=== PATIENT | male | born 1950 | race Hispanic/Latino ===

== ENCOUNTER 2021-03-26 05:45 | Day surgery (SDC) | payer MEDICARE, OTHER ==
[~2021-03-26] VITALS: Ht 177.8 cm; Wt 82.0 kg
[~2021-03-26 05:45] MED LIST: FLOMAX0.4 MG PO
--- NOTE | 2021-03-26 06:05 | NUR ---
RAPID COVID TEST DONE PER DR ORDER. COVID TEST COLLECTED FROM BOTH NARES W/ ISSUE. PT TOLERATED WELL.
--- NOTE | 2021-03-26 10:26 | NUR ---
03/26/21 Mode6 Destiny Goldstein 1006- PT ARRIVES TO PACU NONAROUSABLE TO NOXIOUS STIMULI WITH AN OPA IN PLACE. RESP EVEN AND UNLABORED. AUDIBLE NOISES FROM THE AIRWAY NOTED. EXPIRATORY WHEEZES HEARD THROUGHOUG ALL LUNG CALDERON. VERBAL ORDER FOR DUONEB FROM CNRA OBTAINED. OXYGEN SAT HIGH 90'S TO 100% ON 8L VIA MASK. 1010- DUONEB STARTED. OXYGEN TITRATED DOWN TO 6L VIA NEB LAUREL. 1014- PT WAKING AND COUGHING. PT INSTRUCTED TO OPEN HIS MOUTH TO REMOVE THE OPA. PT IS ABLE TO DO THIS AND OPA REMOVED. DUONEB REPLACED.
--- NOTE | 2021-03-26 11:15 | NUR ---
CONTINUIOUS BLADDER IRRIGATION DRAINING LIGHT RED BLOOD. NO CLOTS NOTED.
--- NOTE | 2021-03-26 12:27 | OR ---
[facility] [address] [place], [place] [address] Signed DATE OF OPERATION: 03/26/2021 SURGEON: Tenzin Segundo MD PREOPERATIVE DIAGNOSES: 1. Three large bladder calculi. 2. Urinary frequency, secondary to #1. 3. Active urinary tract infection. 4. Trilobar benign prostatic hyperplasia with lower urinary tract symptoms. POSTOPERATIVE DIAGNOSES: 1. Three large bladder calculi. 2. Urinary frequency, secondary to #1. 3. Active urinary tract infection. 4. Trilobar benign prostatic hyperplasia with lower urinary tract symptoms. NAMES OF PROCEDURES: 1. Diagnostic cystoscopy. 2. Urethral dilation using Greenup sounds from 16-Tanzanian to 30-Tanzanian. 3. Complex cystolitholapaxy with removal of greater than 6 cm worth of bladder calculi. ANESTHESIA: General. ESTIMATED BLOOD LOSS: 100 mL. COMPLICATIONS: None. SPECIMENS: Over 6 cm worth of fragments of bladder calculi sent to the lab for stone analysis. DRAINS: A 22-Tanzanian 3-way Chappell catheter, connected to continuous bladder irrigation. INDICATIONS FOR PROCEDURE: Mr. Jimenez is a very pleasant 70-year-old gentleman who I have known for a long time. He has been receiving conservative management for pphtogei-bg-qjtarh BPH with lower urinary tract symptoms for at least a couple years now. When his symptoms fail to Electronically Signed By: TENZIN SEGUNDO MD 03/26/21 1227 PATIENT NAME: JIMMY MEDINAKIM OPERATIVE REPORT DATE OF : 50 REPORT #: [id number] PHYSICIAN: TENZIN SEGUNDO MD PCP: MILTON GRIER REPORT IS CONFIDENTIAL AND NOT TO BE RELEASED WITHOUT AUTHORIZATION [facility] [address] [place], [place] [address] Signed improve on Flomax twice daily, the decision was made for him to undergo diagnostic cystoscopy earlier this year. Diagnostic cystoscopy revealed 3 very large bladder calculi, along with aovkpvay-fi-hkzgqh trilobar benign prostatic hyperplasia. The patient chose to defer surgery until the winter time. For the past couple of weeks, he has been experiencing severe urinary urgency and frequency symptoms that I suspect related to his growing bladder calculi. He presents today to undergo removal of his large bladder calculi with possible transurethral resection of the prostate. OPERATIVE FINDINGS: 1. On cystoscopy, there are 3 very large smooth-walled stones, each measuring around 2 cm, present within the patient's bladder. Bilateral ureteral orifices are in their normal anatomic location. Of note, the bladder wall is very friable and irritated. 2. Ureteroscopy reveals a trilobar obstructing prostate, also very friable with manipulation. Due to the extreme friability of the tissue today, the decision was made not to perform transurethral resection of the prostate. This decision was also made based on the fact that he was found to have urinary tract infection 3 days ago. 3. This was a complex cystolitholapaxy requiring at least 2.5 hours time of laser fragmentation of the stones using a holmium laser as well as irrigation of all stone fragments from the patient's bladder. 4. At the end of the procedure, a 22-Tanzanian 3-way Chappell catheter was inserted into the patient's bladder and connected to continuous bladder irrigation. DESCRIPTION OF PROCEDURE: After informed consent was obtained, the patient was taken back to the operating room. He was transferred from the [facility] to the operating room table where general anesthesia was induced. He was placed in the dorsal lithotomy position and his genitalia were prepped and draped in the standard sterile fashion. Using a 30-degree lens on a 21.5-Tanzanian introducer, a rigid cystoscope was inserted through his urethra and into his bladder. Panendoscopic views of the bladder were then obtained. Please see above findings. I then turned my attention to the 3 large bladder calculi present in the bladder. A 600 micron fiber was used with holmium laser at a setting of 10 hertz and 1.5 joules. It took approximately 2.5 hours to laser all 3 stones into small enough fragments to be irrigated from the patient's bladder using a Anita syringe. Again, the laser fragmentation portion was difficult as the stones were very difficult to laser. I avoided higher energies due to risk of damage to the bladder wall from the holmium laser. Once I was satisfied that all of the stone fragments had been removed from the patient's bladder, I did attempt transurethral resection of the patient's prostate. I removed the 21.5-Tanzanian sheath and dilated the patient's fossa navicularis using Greenup sounds from 16-Tanzanian to 30-Tanzanian without difficulty. I then inserted a 26-Tanzanian sheath using a visual obturator. The visual obturator was then removed and replaced with a resectoscope. I made about 2 to 3 bites into the median lobe of the prostate. Each bite required a good deal of cauterization time to achieve hemostasis. Electronically Signed By: TENZIN SEGUNDO MD 03/26/21 1227 PATIENT NAME: KIM DICKEY OPERATIVE REPORT DATE OF : 50 REPORT #: [id number] PHYSICIAN: TENZIN SEGUNDO MD PCP: MILTON GRIER REPORT IS CONFIDENTIAL AND NOT TO BE RELEASED WITHOUT AUTHORIZATION [facility] [address] [place], [place] [address] Signed I suspect this is due from chronic irritation from the presence of the large bladder calculi. After 3 or 4 bites, I chose to abort the TURP for today due to the more than average hemorrhage that occurred with each resection of tissue. Also, the patient is noted to have an active UTI and so the TURP today would be contraindicated. Once adequate hemostasis was achieved using the bipolar loop, the resectoscope was removed from the patient's bladder. The patient's bladder was again thoroughly irrigated with a Anita syringe. 100% of the bladder calculi fragments were successfully irrigated from the patient's bladder using the Anita syringe. At the end of procedure, a 22-Tanzanian 3-way Chappell catheter was inserted into the patient's bladder and connected to moderate flow continuous bladder irrigation. A digital rectal examination was also then performed, which revealed no evidence of any focal nodularity of the prostate. The procedure was then terminated. The patient tolerated the procedure well without any complications. He will now be transferred to the postanesthesia care unit in stable condition. DISPOSITION: I informed the patient's son today that I was able to successfully extract over 6 cm of stone burden from the patient's bladder. However, I chose not to proceed with transurethral resection of prostate due to active UTI and more than average friability of the prostatic urethra. The patient will be placed back on the OR schedule to undergo a transurethral resection of the prostate on April 09, 2021. He will be sent home today with Levaquin 500 mg one tablet p.o. daily for the next 10 days along with oxycodone 5 mg one tablet p.o. q.6 hours p.r.n. pain dispense #20. The patient was also given Pyridium as needed for dysuria. He will be scheduled return to clinic this Friday, March 28 to undergo voiding trial. I informed the family today that the only testing that needs to be redone for his upcoming TURP would be a repeat COVID test the Friday before his surgery. Tenzin Segundo MD AR/MODL /[id number] Copies: Electronically Signed By: TENZIN SEGUNDO MD 03/26/21 1227 PATIENT NAME: KIM DICKEY OPERATIVE REPORT DATE OF : 50 REPORT #: [id number] PHYSICIAN: TENZIN SEGUNDO MD PCP: MILTON GRIER REPORT IS CONFIDENTIAL AND NOT TO BE RELEASED WITHOUT AUTHORIZATION [facility] [address] [place] [address] [place], [place] [address] Signed ~ Electronically Signed By: TENZIN SEGUNDO MD 03/26/21 1227 PATIENT NAME: KIM DICKEY OPERATIVE REPORT DATE OF : 50 REPORT #: [id number] PHYSICIAN: TENZIN SEGUNDO MD PCP: MILTON GRIER REPORT IS CONFIDENTIAL AND NOT TO BE RELEASED WITHOUT AUTHORIZATION
--- NOTE | 2021-03-26 12:45 | NUR ---
PT BLADDER IRRIGATION DRAINING TO GRAVITY. OUTPUT IS LIGHT RED TO PINK. DR. SEGUNDO AT THE [facility] WITH PATIENT AND FAMILY.
--- NOTE | 2021-03-26 14:31 | NUR ---
PT URINE LIGHT PINK, HE COMMENTS THAT HE IS STILL HAVING PAIN WHEN HE PEES. THE PAIN IS INTERMITTENT. PT IS AWARE THAT HE HAS A CATHERTER IN PLACE, BUT STATES THAT IT FEELS LIKE WHEN HE HAS TO PEE.
--- NOTE | 2021-03-26 14:48 | NUR ---
AMES DRAINAGE IS LIGHTENING IN COLOR, CORRESPONDENT PINK AT THIS TIME. IRRIGATION SLOWED. PT TOLERATING WELL.
--- NOTE | 2021-03-26 15:07 | NUR ---
BLADDER IRRIGATION PAUSED TO ASSESS COLOR OF URINE.
--- NOTE | 2021-03-26 16:15 | NUR ---
COMMUNICATED WITH DR. FLOWERS REGARDING URINE COLOR. REPORTED LIGHT RED WITH NO CLOTS. DR. SCHNEIDER OK WITH DISCHARGE. PT STABLE AND READY TO DEPART. ASSISTED WITH CLOTHING AND PROVIDED URINARY DEVICE EDUCATION IT PERTAINS TO DRESSING, DRAINAGE, AND ADVERSE SIGNS AND SYMPTOMS. SON TO TRANSLATE AND FAMILY VERBALIZES UNDERSTANDING.
== END 2021-03-26 16:35 | disposition home or self-care (01) ==
LOC: DS 05:45
PROVIDERS: ATTEND Urology
PROC: 0TCB8ZZ Extirpation of Matter from Bladder, Via Natural or Artificial Opening Endoscopic (ICD-10-PCS; principal; 2021-03-26 06:45)
PROC: 0T7D7ZZ Dilation of Urethra, Via Natural or Artificial Opening (ICD-10-PCS; 2021-03-26 06:45)
DX: N21.0 Calculus in bladder (principal); N40.1 Benign prostatic hyperplasia with lower urinary tract symptoms; R35.0 Frequency of micturition; N39.0 Urinary tract infection, site not specified; I10 Essential (primary) hypertension; E78.5 Hyperlipidemia, unspecified; N13.8 Other obstructive and reflux uropathy; R97.20 Elevated prostate specific antigen [PSA]; Z87.891 Personal history of nicotine dependence; Z20.822 Contact with and (suspected) exposure to COVID-19
CPT/HCPCS: C9803; J0690; J1100; J1580; J1885; J2001; J2405; J2704; J3010; U0003

== ENCOUNTER 2021-04-09 05:40 | Day surgery (SDC) | payer MEDICARE, OTHER ==
[~2021-04-09] VITALS: Ht 177.8 cm; Wt 82.0 kg
--- NOTE | 2021-04-09 10:35 | NUR ---
04/09/21 1035 Aaron Shi REPORTS 01/07 PAIN THROUGH INTERPERETER SHARLENE ROBERTS RN. MEDICATED FOR PAIN PER EMAR. DENIES NAUSEA. ORIENTED TO TIME AND SITUATION. ORIENTED TO CATHETER. FALLS ASLEEP AFTER PAIN MEDICATION AND IS LIGHTLY SNORING BY 1035
--- NOTE | 2021-04-09 12:03 | NUR ---
1130- PT ARRIVED FROM PACU, DROWSY, ANSWERS APPROPRIATELY. IVF INFUSING, F/C WITH IRRIGATION INPLACE. ON ROOM AIR, CPOX AT BEDSIDE.FAMILY IN ROOM
--- NOTE | 2021-04-09 12:18 | NUR ---
medicated with Dilaudid 0.5mg c/o 10/10 penile/low abd pain.
--- NOTE | 2021-04-09 15:06 | NUR ---
COMFORTABLE, TOLERATING LIQUIDS AND CRACKERS WELL. 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 IVF INFUSING.
--- NOTE | 2021-04-09 16:25 | NUR ---
f/c drainage cranberry colored. bladder irrigation increased, denies c/o pain, tolerating fluids well, got crackers too. no emesis. family in room
--- NOTE | 2021-04-09 19:10 | NUR ---
Dr Porter here to examine pt. Pt comfortable, IVF infusing. CI infusing
--- NOTE | 2021-04-09 19:40 | NUR ---
IN TO SEE PT. HAND OFF REPORT RECIEVED. NO NEEDS OR REQUESTS AT THIS ITME. CALL LIGHT IN REACH.
--- NOTE | 2021-04-09 21:13 | NUR ---
IN TO SEE PT, ASSESSMENT DUE. NEW BAG OF FLUIDS STARTED. IV FLUSHING WELL, NO S/SX OF INFILTRATION OR PHELBITIS. PT DENIES PAIN. FAMILY AT BEDSIDE. I AND OS COMPLETED. NO BLOOD CLOTS NOTED IN AMES. PINK COLORED OUTPUT NOTED. AMES CATHETER CARE PROVIDED. NO OTHER NEEDS OR REQUESTS AT TIME. CALL LIGHT IN REACH.
--- NOTE | 2021-04-10 01:25 | NUR ---
IN TO CHECK ON PT. FAMILY REMIANS AT THE BEDSIDE. VS OBTAINED. F/C EMPTIED. URINE OUTPUT LIGHT PINK. PT HAM PAIN AND DISCOMFRT. NO NEEDS OR REQUESTS AT THIS TIME.
--- NOTE | 2021-04-10 02:33 | NUR ---
PT RESTING, DENIES NEEDS. CBI AT SLOW DRIP. CALL LIGHT IN REACH.
--- NOTE | 2021-04-10 03:29 | NUR ---
IN TO CHECK ON PT, PT LAYING IN BED WITH EYES OPEN AND ALERT. CBI FLOWING AT SLOW DRIP. NO NEEDS AT THIS ITME. CALL LIGHT IN REACH.
--- NOTE | 2021-04-10 05:45 | NUR ---
IN TO SEE PT. ASSESSMENT COMPLETED. PT UP TO USE BSC. VS COMPLETED. FAMILY REMIANS AT BEDSIDE. I AND O'S COMPLETED. DENIES PAIN. NO OTHER NEEDS. CALL LIGHT IN REACH.
--- NOTE | 2021-04-10 06:29 | NUR ---
ALERT AND OREITNED X3. REG DIET. BM. CBI CLAMPED SINCE 544. IV FLUIDS INFUSING. SUDANESE SPEAKING ONLY. RA. BEDREST. 1 SBA. 3WAY AMES. DENIES PAIN.
--- NOTE | 2021-04-10 06:44 | NUR ---
NEW BAG IV FLUIDS INFUSING. PT DENIES PAIN. NO OTHER NEEDS. CALLL LIGHT IN REACH.
--- NOTE | 2021-04-10 07:15 | NUR ---
THIS RN RECEIVED REPORT FROM HALEY BRADLYE. PTS SON AWAKE AND ABLE TO TRANSLATE FOR THIS RN. PT DENIES PAIN AT THIS TIME. THIS RN NOTED THAT PTS HUI WAS PUTTING OUT DARK RED DRAINAGE WITH FINE SEDIMENT. CBI AT A TRICKLE
--- NOTE | 2021-04-10 08:00 | NUR ---
THIS RN CALLED TO UPDATE HER ABOUT PTS CONDITION. MD ASKED THIS RN TO MANUALLY FLUSH THE BLADDER TO LOOK FOR CLOTS AND TO TURN CBI UP TO MORE THAN A TRICKLE. OKAY WITH DISCHARGING PT WITH CRANBERRY COLORED OUTPUT.
[2021-04-10] MEDS ORDERED: OXYCODONE HCL5 MG PO (08:06)
[2021-04-10] MEDS ORDERED: LEVOFLOXACIN500 MG PO (08:07)
--- NOTE | 2021-04-10 08:30 | NUR ---
THIS RN IN PTS ROOM TO FLUSH PTS 3 WAY CATHETER. NO CLOTS NOTED AND PT TAUGHT WHAT THIS RN WAS DOING. THIS RN WILL CONTINUE TO WATCH COLOR AND SEDIMENT IN CATHETER TUBING.
--- NOTE | 2021-04-10 10:15 | NUR ---
THIS RN IN PTS ROOM TO GIVE MEDS. PT STILL DENIES PAIN AND COLOR OF OUTPUT IS A LIGHT TO REGULAR EcorithmERRY COLOR AT THIS TIME. THIS RN TO CLAMP CBI AND WATCH COLOR OF DRAINAGE.
--- NOTE | 2021-04-10 10:18 | NUR ---
PATIENT IN BED RESTING AT THIS TIME. FAMILY IN ROOM. VITALS AND I&O'S CHARTED. CALL LIGHT IN REACH. NO FURTHER NEEDS AT THIS TIME.
--- NOTE | 2021-04-10 11:30 | NUR ---
PTS OUTPUT COLOR HAS REMIANED WITH A NORMAL CRANBERRY COLOR WITH MINMAL FINE SEDIMENT AT THIS TIME. NO PAIN NOTED. THIS RN DISCUSSED WITH PTS SON WHO INTERPRETED DISCHARGE TEACHING, ESPECIALLY HOW TO KEEP THE CATHETER INSERTION SITE CLEAN
--- NOTE | 2021-04-10 17:07 | OR ---
[facility] [address] [place], [place] [address] Signed DATE OF OPERATION: 04/09/2021 SURGEON: Tenzin Segundo MD PREOPERATIVE DIAGNOSES: 1. Severe trilobar benign prostatic hyperplasia with active lower urinary tract symptoms. 2. History of multiple bladder calculi measuring up to 6 cm of stone burden, status post recent extraction of bladder calculi. POSTOPERATIVE DIAGNOSES: 1. Severe trilobar benign prostatic hyperplasia with active lower urinary tract symptoms. 2. History of multiple bladder calculi measuring up to 6 cm of stone burden, status post recent extraction of bladder calculi. NAMES OF PROCEDURES: Transurethral resection of the prostate. ANESTHESIA: General. ESTIMATED BLOOD LOSS: 100 mL. COMPLICATIONS: None. SPECIMENS: 1. Prostate chips sent to Pathology for evaluation. 2. Lesion present on verumontanum, status post resection of papillary appearing area to be sent to the lab for pathologic evaluation. DRAINS: A 22-Marshallese three-way Chappell catheter, connected to continuous bladder irrigation. INDICATIONS FOR PROCEDURE: Kim is a very pleasant 70-year-old gentleman who is well-known to me. He has a longstanding history of BPH with lower urinary tract symptoms and has been taking maximum medication therapy for at least a year now. Earlier in the year 2020, he underwent diagnostic cystoscopy, which revealed three large bladder calculi, each measuring around 2 cm in size. Also, noted was severe trilobar BPH with evidence of Electronically Signed By: TENZIN SEGUNDO MD 04/10/21 1707 PATIENT NAME: KIM DICKEY OPERATIVE REPORT DATE OF : 50 REPORT #: [id number] PHYSICIAN: TENZIN SEGUNDO MD PCP: MILTON GRIER REPORT IS CONFIDENTIAL AND NOT TO BE RELEASED WITHOUT AUTHORIZATION [facility] [address] [place], [place] [address] Signed active bladder outlet obstruction. Approximately two weeks ago, he underwent a greater than 2-hour bladder stone extraction. The procedure took a long time due to the shear size of the stones. He did well after that procedure and presents today now to undergo definitive resection of his obstructing prostate. OPERATIVE FINDINGS: 1. Digital rectal examination reveals an 85-90 g prostate that is smooth and symmetric with no focal nodules. 2. On cystoscopy, there was again no evidence of any suspicious masses or lesions within the bladder. However, there is evidence of a papillary appearing lesion on the verumontanum. This was resected and sent in a separate specimen cup to Pathology. The bilateral ureteral orifices are in their normal anatomic location and noted to be a good distance away from the bladder neck. Also of note is one small 6 cm residual bladder calculus that escaped extraction around two weeks ago. This was successfully irrigated from the patient's bladder today. 3. Urethroscopy revealed a severe trilobar prostatic hyperplasia. In particular, the anterior portion of the urethra had a lot more tissue present than is normally seen. There is no obvious median lobe, however, the anterior portion of the prostatic urethra is significantly hypertrophied, making it somewhat similar to a classic trilobar hypertrophy. The lateral lobes were moderate to large in size with an approximate distance of 3 cm from bladder neck to the verumontanum. 4. The patient's trilobar prostate was resected transurethrally, mostly using a 24-Marshallese bipolar loop. The resection time was approximately 2 hours as he had a very large prostatic urethra. I took the anterior wall of the prostatic urethra down significantly along with the lateral lobes of the prostate and a little bit of the median lobe of the prostate. Both the left and right lateral lobes of the prostate were fully resected down to the level of the verumontanum. The resection was performed without difficulty, however, there was a good deal of active bleeding during the surgery that I suspect was due to an elevated diastolic blood pressure. 5. At the end of procedure, a 22-Marshallese three-way Chappell catheter was inserted into the patient's bladder and connected to continuous bladder irrigation. DESCRIPTION OF PROCEDURE: After informed consent was obtained, the patient was taken back to the operating room. He was transferred from the [facility] to the operating room table, where general anesthesia was induced. He then underwent a digital rectal examination. He was placed in the dorsal lithotomy position and his genitalia were prepped and draped in the standard sterile fashion. His urethral meatus was then dilated from 20-Marshallese to 30-Marshallese without difficulty using Gabriela sounds. Using a 30-degree lens on a 22.5-Marshallese introducer, a rigid cystoscope was inserted through the urethra into his bladder under direct visualization. Diagnostic cystoscopy was then performed. Please see above findings. I then removed the cystoscope and then inserted a 26-Marshallese continuous flow Electronically Signed By: TENZIN SEGUNDO MD 04/10/21 1707 PATIENT NAME: KIM DICKEY OPERATIVE REPORT DATE OF : 50 REPORT #: [id number] PHYSICIAN: TENZIN SEGUNDO MD PCP: MILTON GRIER REPORT IS CONFIDENTIAL AND NOT TO BE RELEASED WITHOUT AUTHORIZATION [address] [address] Signed sheath using a visual obturator. The visual obturator was then switched out for the resectoscope. Prior to this, I instilled 60 mL of lubricant into the patient's urethra using a cath tipped syringe. Once the resectoscope was in place, I resected the mildly elevated bladder neck initially using the 24-Marshallese bipolar loop. I then focused on both the left and lateral myles of the prostate thereafter. All the while, I was aware of the location of the bilateral ureteral orifices and they did not sustain any damage during the resection as they were not near the bladder neck. Once I resected the lateral lobes of the prostate, I then turned my attention to the anterior wall of the prostatic urethra, which had a good deal of tissue present. Again, this was resected using a 24-Marshallese loop. Again, the resection was performed down to the level of verumontanum, as to avoid damage to the external sphincter. After good deal of tissue was excised using a 24-Marshallese loop, I used a Anita syringe to extract all the prostate chips and the one smaller bladder calculus from the patient's bladder. Once a good deal of tissue had been removed, I switched from the 24-Marshallese loop to the bipolar button. I was able to achieve a good deal of hemostasis with the button. The patient's bladder was again thoroughly irrigated of all prostate chips. The chips were then placed in a specimen cup and sent to Pathology for evaluation. The single bladder calculus discovered today was not placed in a specimen jar, as his stone analysis from the case has already been performed. After the TURP was completed, I removed the resectoscope along with the 26-Marshallese sheath. Prior to removing the sheath, I inserted a 0.035 Sensor wire into the patient's bladder through the existing sheath. The sheath was then removed fully intact. Over the wire, I passed a 22-Marshallese three-way Chappell catheter into the patient's bladder without difficulty. The wire was then removed and the catheter was then manually irrigated multiple times to assure adequate placement. The Chappell balloon was filled with 30 mL of water. Once flushed, the catheter was then connected to continuous bladder irrigation. The procedure was then terminated. The patient tolerated the procedure well without any complication. He will now be transferred to the postanesthesia care unit in stable condition. DISPOSITION: I discussed the details of today's procedure with the patient's family and answered all of their questions. He will remain in house tonight and be transferred to Med/Surg later this morning where his diet will be restarted and he will be given pain control as needed. His continuous bladder irrigation will be slowly weaned off overnight. He will be given one additional dose of Rocephin in the morning prior to discharge. He will be heading home with a Chappell catheter to gravity drainage and will return this April 12 to undergo a voiding trial. Tenzin Segundo MD Electronically Signed By: TENZIN SEGUNDO MD 04/10/21 1707 PATIENT NAME: KIM DICKEY OPERATIVE REPORT DATE OF : 50 REPORT #: [id number] PHYSICIAN: TENZIN SEGUNDO MD PCP: MILTON GRIER REPORT IS CONFIDENTIAL AND NOT TO BE RELEASED WITHOUT AUTHORIZATION [address] [address] Signed AR/MODL /[id number] Copies: ~ Electronically Signed By: TENZIN SEGUNDO MD 04/10/21 1707 PATIENT NAME: MALORIE DICKEYO OPERATIVE REPORT DATE OF : 50 REPORT #: [id number] PHYSICIAN: TENZIN SEGUNDO MD PCP: MILTON GRIER REPORT IS CONFIDENTIAL AND NOT TO BE RELEASED WITHOUT AUTHORIZATION
--- NOTE | 2021-04-22 11:01 | PATH ---
[facility] [address], [place] [address] Signed SPECIMEN(S): A PROSTATE CHIPS SPECIMEN(S): B URETHRAL LESION (VERUMONTANUM) SPECIMEN SOURCE: A. PROSTATE CHIPS B. URETHRAL LESION (VERUMONTANUM) CLINICAL HISTORY: BPH; transurethral resection of prostate. FINAL PATHOLOGIC DIAGNOSIS: A. Prostate chips, transurethral resection: - Benign prostatic hyperplasia. - Focal atypical intraductal proliferation, see Comment - Focal urothelial atypia, favor reactive. B. Urethral lesion, verumontanum, biopsy: - Atypical intraductal proliferation, see Comment. COMMENT: The urethral biopsy shows a discrete, nodular, cribriform and papillary proliferation of prostatic glands lined by cells with enlarged nuclei, prominent nucleoli, and amphophilic cytoplasm. There is mildly increased anisonucleosis (1-2x) and mitotic activity is brisk; no coagulative tumor necrosis is seen. TRICAP multiplex staining (with appropriately staining controls) shows retained basal marker (p63, HMWCK) expression in conjunction with diffuse, strong AMACR expression. These results are indicative of a neoplastic prostatic lesion with a degree of atypia intermediate between high grade prostatic intraepithelial neoplasia (HGPIN) and more aggressive intraductal tumors (i.e. intraductal carcinoma, ductal adenocarcinoma). Therefore, this focus is best considered as an "atypical intraductal proliferation." A single fragmented focus with similar nuclear, architectural features, and immunohistochemical features (as demonstrated by TRICAP multiplex stain) of the urethral lesion is seen in the TURP specimen, which could represent a portion of the same lesion. Close clinical follow up along with short interval re-biopsy (optimally within 1 to 3 months) is advised. This case was reviewed with another member of our pathology staff with subspecialty training with genitourinary pathology. PATIENT NAME: KIM DICKEY PATHOLOGY DATE OF : 50 REPORT #: [id number] PHYSICIAN: KARYN PATHOLOGY PCP: MILTON GRIER REPORT IS CONFIDENTIAL AND NOT TO BE RELEASED WITHOUT AUTHORIZATION [facility] [address], [place] [address] Signed A diagnostic alert was initiated by Dr. Reyes on 04/22/21. NAL:cml:C2NR MICROSCOPIC EXAMINATION: Histologic sections of all submitted blocks are examined by light microscopy. These findings, together with the gross examination, support the pathologic diagnosis. Regarding specimen A: A fragment of urothelium with nuclear atypia in in the setting of intraepithelial acute inflammation is identified. Immunohistochemical stains (with appropriately staining controls) were performed. The urothelium is negative for full-thickness CK20 staining and p53 is not overexpressed. Given the combined morphologic and immunophenotypic profile, this is favored as reactive. GROSS DESCRIPTION: Two specimens are received in two containers, labeled "GR." A. The specimen, labeled "GR, A," and designated on the requisition "prostate chips," is received in formalin and consists of multiple fragments of pink-jimenez, hemorrhagic, soft and rubbery tissue (29 gram, 7.5 x 6.0 x 3.0 cm in aggregate). Approximately 60% of the specimen is submitted in cassettes (A1-A11). B. The specimen, labeled "GR, B," and designated on the requisition "urethral lesion (verumontanum)," is received in formalin and consists of two fragments of jimenez soft tissue (0.5 and 0.8 cm in greatest dimension). The specimen is submitted entirely in cassette (B1). AC (under the direct supervision of a pathologist) The remainder of specimen is submitted in cassettes (A12-A21) at the request of Dr. Eric JAMES (under the direct supervision of a pathologist) The Gross Description was prepared using a voice recognition system. The report was reviewed for accuracy; however, sound-alike word errors, addition and/or deletions may occur. If there is any question about this report, please contact Client Services. PERFORMING LABORATORY: The technical component was performed by [facility], [address] [place] [id number] (Director Of Public Relations: Alisa Castro MD; CLIA# [id number]). [facility], [address] [place] [address] (CLIA# [id number]). PATIENT NAME: KIM DICKEY PATHOLOGY DATE OF : 50 REPORT #: [id number] PHYSICIAN: KARYN SHANNON PCP: MILTON GIRER REPORT IS CONFIDENTIAL AND NOT TO BE RELEASED WITHOUT AUTHORIZATION [facility] [address], [place] [address] Signed Diagnostician: Reema Reyes MD Pathologist Electronically Signed 04/22/2021 Copies: ~ PATIENT NAME: KIM DICKEY PATHOLOGY DATE OF : 50 REPORT #: [id number] PHYSICIAN: KARYN SHANNON PCP: MILTON GRIER REPORT IS CONFIDENTIAL AND NOT TO BE RELEASED WITHOUT AUTHORIZATION
== END 2021-04-10 11:55 | disposition home or self-care (01) ==
LOC: MS 05:40 → DS 05:40
PROVIDERS: ATTEND Urology
PROC: 0VT08ZZ Resection of Prostate, Via Natural or Artificial Opening Endoscopic (ICD-10-PCS; principal; 2021-04-09 09:05)
DX: N40.1 Benign prostatic hyperplasia with lower urinary tract symptoms (principal); R39.14 Feeling of incomplete bladder emptying; R39.12 Poor urinary stream; R35.1 Nocturia; N13.8 Other obstructive and reflux uropathy; I10 Essential (primary) hypertension; Z87.891 Personal history of nicotine dependence; Z87.442 Personal history of urinary calculi
CPT/HCPCS: 00914; 88305; 88344; C1769; J0690; J0696; J1100; J1170; J1885; J2250; J2270; J2405; J2704; J2765; J3010; J7030; J7121

== ENCOUNTER 2021-07-02 06:02 | Day surgery (SDC) | payer MEDICARE, OTHER ==
[~2021-07-02] VITALS: Ht 177.8 cm; Wt 81.8 kg
[~2021-07-02 06:02] MED LIST changes: +LEVOFLOXACIN500 MG PO; +OXYCODONE HCL5 MG PO
[2021-07-02] MEDS ORDERED: LISINOPRIL-HCT1 EACH PO (06:16)
--- NOTE | 2021-07-02 08:42 | NUR ---
07/02/21 0842 Noy Dunn 0827-PT TO PACU IN SUPINE POSITION. EYES CLOSED DOES NOT RESPOND TO VERBAL OR TACTILE STIMULI. BREATHING EASY AND UNLABORED. WITH ORAL AIRWAY IN PLACE. HOB ELEVATED TO ACHIEVE OPTIMAL VENTILLATION WITHOUT CHIN LIFT. SP02 >95% ON 10 L O2 VIA SIMPLE MASK 0831- AUDIBLE WHEEZES HEARD. MANAGER MONITORING NOTIFIED. DUO NEBULIZER STARTED WITH MANAGER MONITORING AT BEDSIDE. PT DOES NOT FOLLOW COMMANDS BUT IS REACTIVE TO TACTILE STIMULI. BRETAHING EASY AND UNLABORED WITH ORAL AIRWAY IN PLACE. SPO2 >95% ON 6 L O2 VIA SIMPLE MASK. 0834- PT RESPONDS TO TACTILE STIMULI AND FOLLOWS COMMANDS. ORAL AIRWAY REMOVED. PT ENCOURAGED TO TAKE DEEP BREATHS. RETURN DEMONSTRATION OBSERVED. BREATHING TREATMENT ONGOING 0840- MODELING AGENCY MANAGER AT BEDSIDE. PT EDUCATED ABOUT PLAN OF CARE IN PACU. PT REPORTS 0/10 PAIN AND NO NAUSEA. BREATHING EASY AND UNLABORED. SPO2 >95% ON 6 L O2 VIA SIMPLE MASK.
--- NOTE | 2021-07-02 09:08 | NUR ---
PT BACK TO ROOM FROM PACU ALERT AND AWAKE DENIES PAIN OR NAUSEA, PT DRINKING WATER AND EATING CRACKERS TOLERATES WELL. IS AT BEDSIDE. WARM BLANKET GIVEN, CALL LIGHT WITHIN REACH. AMES CATH IN PLACE DRAINING PINK URINE.
--- NOTE | 2021-07-02 09:29 | NUR ---
0905 AMES DRAINING PINK URINE, NO CLOTS NOTED. AMES REMOVED SMALL BLOOD CLOT FROM URETHRA CATH WAS REMOVED. PT TOLERATED WELL. 300ML OF PINK COLORED URINE IN AMES BAG.
--- NOTE | 2021-07-02 09:42 | NUR ---
0930 PT REPORTS NEEDING TO VOID, STANDING AT BEDSIDE USING URINAL PT WAS ABLE TO VOID 50ML OF BLOOD TINGED URINE. PT HELPED BACK INTO BED, FLASH NAPIER GIVEN CALL LIGHT WITH IN REACH.
--- NOTE | 2021-07-02 10:56 | NUR ---
1025 PT UP AT SIDE OF BED TO VOID 100ML OF BLOOD TINGED URINE. 1035 PT UP AT SIDE OF TO VOID 125ML OF BLOOD TINGED URINE [address] SEGUNDO ABOUT BLOOD IN URINE SHE SAY TO ASSURE THEM THEM THAT IT IS NORMAL LONG THERE ARE NO BIG BLOOD CLOTS, SHE WAS GIVEN THE OK FROM TO GO HOME. PT WAS HELPED TO DRESS BY AND VOIDED 150ML OF BLOOD TINGED URINE. IV DC'D TIP IN TACT, DISCHARGE INSTRUCTIONS GIVEN TO PT AND BOTH VOICED UNDERSTANDING. PT WAS GIVEN A TOTAL OF 2500ML OF LR, (2200ML IN OR AND PACU, 300ML IN DAYSURGERY).
--- NOTE | 2021-07-02 11:04 | NUR ---
1055 PT DENIES PAIN OR NAUSEA, PT WHEELED OUT TO FRONT DOOR BY RN
--- NOTE | 2021-07-02 13:52 | OR ---
[facility] [address] [place], [place] [address] Signed DATE OF OPERATION: 07/02/2021 SURGEON: Tenzin Segundo MD PREOPERATIVE DIAGNOSES: 1. Abnormal urethral pathology noted at the level of the prostatic verumontanum at the time of transurethral resection of prostate in March of 2021. 2. History of BPH with severe lower urinary tract symptoms. POSTOPERATIVE DIAGNOSES: 1. Abnormal urethral pathology noted at the level of the prostatic verumontanum at the time of transurethral resection of prostate in March of 2021. 2. History of BPH with severe lower urinary tract symptoms. PROCEDURES: 1. Diagnostic cystoscopy. 2. Transurethral biopsy of prostatic verumontanum. ANESTHESIA: General. ESTIMATED BLOOD LOSS: Minimal. COMPLICATIONS: None. SPECIMENS: Fragments of the remaining verumontanum were sent to pathology for evaluation. DRAINS: A 20-Cymro two-way Chappell catheter, connected to gravity drainage. INDICATIONS FOR THE PROCEDURE: Mr. Tony Hopper is a very pleasant 71-year-old gentleman with history of severe trilobar BPH with lower urinary tract symptoms, who is well-known to me. After a year or so of conservative management with Flomax, the patient was noted to have multiple bladder calculi on cystoscopy along with trilobar prostatic urethra. In March, he underwent extraction of his bladder calculi, followed by a formal transurethral resection of the prostate. At that time, there was a papillary lesion noted on his Electronically Signed By: TENZIN SEGUNDO MD 07/02/21 1352 PATIENT NAME: KIM DICKEY OPERATIVE REPORT DATE OF : 50 REPORT #: [id number] PHYSICIAN: TENZIN SEGUNDO MD PCP: MILTON GRIER REPORT IS CONFIDENTIAL AND NOT TO BE RELEASED WITHOUT AUTHORIZATION [facility] [address] [place] [id number] Signed verumontanum and so this was resected. Pathology was indeterminate at that time; however, it could not be established to be benign, so the pathologist requested that a repeat biopsy be performed. He has been doing well since his TURP otherwise and is now voiding without any difficulty. OPERATIVE FINDINGS: 1. On cystoscopy, there was no evidence of any suspicious masses, lesions, or stones. Bilateral ureteral orifices are in their normal anatomic location. 2. The prostatic urethra is wide open and there is no significant evidence of any regrowth of his prostatic adenoma. The verumontanum is noted and there are no obvious papillary lesions near or around the verumontanum or anywhere in the prostatic urethra. The remaining portion of the verumontanum was completely resected and sent to pathology for evaluation. 3. At the end of the procedure, a 20-Cymro two-way Chappell catheter was inserted into the patient's bladder over a Sensor wire. DESCRIPTION OF PROCEDURE: After informed consent was obtained, the patient was taken back to the operating room. He was transferred from [facility] to the operating room table, where general anesthesia was induced. He was placed in the dorsal lithotomy position and his genitalia prepped and draped in a standard sterile fashion. His urethral meatus was dilated using [place] sounds from 20-Cymro to 28-Cymro without difficulty. A 60 mL of sterile lubricant were then instilled into the patient's urethra to prevent strictures. A 26-Cymro sheath was inserted into the patient's bladder using a visual obturator. This was switched out for a resectoscope with a 24-Cymro loop. Prior to this, I performed a diagnostic cystoscopy using a 30-degree lens and a 22.5-Cymro sheath. With the resectoscope in place, I evaluated the verumontanum in the prostatic urethra. Please see above findings. I resected the remaining portion of the verumontanum without incident. The majority of the specimen was present within two chips of tissue. These were placed in a specimen cup to be sent to Pathology for evaluation. I then gently cauterized the biopsy area. I also cauterized a couple of bleeders present at the bladder neck, which was otherwise wide open. The resectoscope was then removed. I irrigated the patient's bladder using the indwelling 26-Cymro sheath. A 0.035 Sensor wire was inserted through the sheath and into the patient's bladder. The sheath was removed fully intact, leaving the Sensor wire in place. Over the wire, passed a 20-Cymro two-way Chappell catheter into the patient's bladder without difficulty. The catheter balloon was filled with 20 mL of sterile water. The catheter was then manually irrigated and there was a light amount of blood tinged to the urine, however, nothing that was concerning. The catheter was then connected to gravity drainage and the procedure was terminated. The patient tolerated the procedure well without any complication. He will now be transferred to the Postanesthesia Care Unit in stable condition. Electronically Signed By: TENZIN SEGUNDO MD 07/02/21 1352 PATIENT NAME: KIM DICKEY OPERATIVE REPORT DATE OF : 50 REPORT #: [id number] PHYSICIAN: TENZIN SEGUNDO MD PCP: MILTON GRIER REPORT IS CONFIDENTIAL AND NOT TO BE RELEASED WITHOUT AUTHORIZATION [facility] [address] [place], [place] [address] Signed DISPOSITION: I discussed the details of today's procedure with the patient's and friend via the friend who was the aerial photograph interpreter. I explained that I did not see anything abnormal in the patient's urethra or bladder today and then I suspect the pathology specimen to overall be benign. His Chappell catheter will be removed in approximately 30 minutes and then a voiding trial will be initiated. He was sent home today with Cipro 500 mg p.o. b.i.d. for a total of five days, along with oxycodone 5 mg one tablet p.o. q.6 hours p.r.n. pain, dispense #10 pills as needed for pain. He will be scheduled to return to clinic on August 28 for a postoperative evaluation. In the interim if his pathology is abnormal in any way, I told his today that she will be notified. MD LB Quiñones/EVA /[id number] Copies: ~ Electronically Signed By: TENZIN SEGUNDO MD 07/02/21 1352 PATIENT NAME: KIM DICKEY OPERATIVE REPORT DATE OF : 50 REPORT #: [id number] PHYSICIAN: TENZIN SEGUNDO MD PCP: MILTON GRIER REPORT IS CONFIDENTIAL AND NOT TO BE RELEASED WITHOUT AUTHORIZATION
--- NOTE | 2021-07-04 15:37 | PATH ---
[facility] [address] [place], [place] [address] Signed SPECIMEN(S): A URETHRAL SPECIMEN SOURCE: A. URETHRAL CLINICAL HISTORY: Urethral lesion (S/P TURP). Post: Cysto with urethral biopsy. FINAL PATHOLOGIC DIAGNOSIS: Urethra, biopsy: - Fragments of urethral tissue with prior biopsy/procedural site changes. - No residual atypical intraductal proliferation identified, see comment. COMMENT: The previous histologic material () is reviewed, and the histologic features of the prior case are not seen in the current case. An immunohistochemical stain for AE1/AE3 is performed on the current case and supports the above interpretation. BRP:[facility]:C2NR MICROSCOPIC EXAMINATION: Histologic sections of all submitted blocks are examined by light microscopy. These findings, together with the gross examination, support the pathologic diagnosis. GROSS DESCRIPTION: The specimen, labeled "GR, A," and designated on the requisition "urethral lesion," is received in formalin and consists of multiple fragments of pink-jimenez tissue (1.4 x 1.0 x 0.3 cm in aggregate). The specimen is submitted entirely in cassette (A1). AC (under the direct supervision of a pathologist The Gross Description was prepared using a voice recognition system. The report was reviewed for accuracy; however, sound-alike word errors, addition and/or deletions may occur. If there is any question about this report, please contact Client Services. ADDITIONAL NOTES: Immunohistochemical and/or in situ hybridization studies were performed on this case with the appropriate positive controls that react as expected. This test was developed and its performance characteristics determined by [facility]. It has not been cleared or PATIENT NAME: KIM DICKEY PATHOLOGY DATE OF : 50 REPORT #: [id number] PHYSICIAN: KARYN SHANNON PCP: MILTON GRIER REPORT IS CONFIDENTIAL AND NOT TO BE RELEASED WITHOUT AUTHORIZATION [facility] [address] [facility] [place] [address] Signed approved by the U.S. Food and Drug Administration. The FDA has determined that such clearance or approval is not necessary. This test is used for clinical purposes. It should not be regarded as investigational or for research. [facility] is certified under the Clinical Laboratory Improvement Amendments of 1988 (CLIA) as qualified to perform high complexity clinical laboratory testing. This assay has not been validated for specimens that have been decalcified. PERFORMING LABORATORY: The technical component was performed by [facility], [address] [place] [id number] (CLIA# [id number]). The professional interpretation was performed by [facility], [facility], [facility] [address] [address] (CLIA#: [id number]). Diagnostician: Andre Lang MD Pathologist Electronically Signed 07/04/2021 Copies: ~ PATIENT NAME: KIM DICKEY PATHOLOGY DATE OF : 50 REPORT #: [id number] PHYSICIAN: KARYN SHANNON PCP: MILTON GRIER REPORT IS CONFIDENTIAL AND NOT TO BE RELEASED WITHOUT AUTHORIZATION
== END 2021-07-02 10:55 | disposition home or self-care (01) ==
LOC: DS 06:02
PROVIDERS: ATTEND Urology
PROC: 0TBD8ZX Excision of Urethra, Via Natural or Artificial Opening Endoscopic, Diagnostic (ICD-10-PCS; principal; 2021-07-02 07:30)
DX: N36.9 Urethral disorder, unspecified (principal); I10 Essential (primary) hypertension; E78.5 Hyperlipidemia, unspecified; N40.1 Benign prostatic hyperplasia with lower urinary tract symptoms; N13.8 Other obstructive and reflux uropathy; N21.0 Calculus in bladder; Z87.891 Personal history of nicotine dependence
CPT/HCPCS: 00910; C1769; J0690; J1100; J1885; J2250; J2405; J2704; J2765; J3010; J7121